=== PATIENT | male | born 2000 | race Caucasian/White ===

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

== ENCOUNTER 2018-10-12 22:10 | Inpatient (IN) | payer OTHER ==
[2018-10-12] MEDS: NS 1,000 ML IV (23:30)
[2018-10-12] MEDS: ONDANSETRON 4MG/2ML VIAL (J2405) IV (23:45)
[2018-10-12] MEDS ORDERED: ISOVUE-370 76% 100ML VIAL (Q9967) As Ordered (23:59)
[2018-10-13] LABS: BASO % 0.1 % (0.0-1.0); EOS # 0.1 10^3/uL (0.0-0.50); EOS % 1.3 % (0.0-3.0); HEMATOCRIT 42.7 % (42.0-52.0); HEMOGLOBIN 14.4 g/dl (13.5-17.5); IMMATURE GRANULOCYTE % 0.5 % (0-3.0); LYMPH # 0.5 10^3/uL (1.5-6.5); MEAN CORPUSCULAR HEMOGLOBIN 29.7 pg (27.0-33.0); MEAN CORPUSCULAR HGB CONC 33.7 g/dl (32.0-36.5); MONO # 0.7 10^3/uL (0.0-0.8); MONO % 6.8 % (0.0-5.0); NEUTROPHILS # 8.6 10^3/uL (1.8-7.7); NEUTROPHILS % 86.3 % (36.0-66.0); PLATELET COUNT, AUTOMATED 248 10^3/uL (150-450); RED BLOOD COUNT 4.85 10^6/uL (4.30-6.10); RED CELL DISTRIBUTION WIDTH 12.1 % (11.5-14.5); WHITE BLOOD COUNT 9.9 10^3/uL (4.0-10.0)
[2018-10-13] MEDS: COLCHICINE 0.6 MG TAB PO ×3 (01:00→20:32)
[2018-10-13] MEDS: NS 1,000 ML IV ×3 (01:06→22:58)
[2018-10-13] MEDS ORDERED: MORPHINE 4 MG/ML 1ML VIAL/SYRINGE (J2270) IV (01:15)
[2018-10-13 01:34] LABS: TROPONIN I < 0.02 NG/ML (< 0.10)
[2018-10-13] MEDS: ACETAMINOPHEN TAB 650MG DOSE (2X325MG) PO ×3 (03:04→23:34)
[2018-10-13] MEDS: PANTOPRAZOLE 40MG INJ (PROTONIX) (C9113) IV (06:29)
[2018-10-13 08:38] LABS: ALBUMIN 3.2 GM/DL (3.2-5.2); ALBUMIN/GLOBULIN RATIO 1.28 (1.00-1.93); ALKALINE PHOSPHATASE 52 U/L (45-117); ALT/SGPT 27 U/L (12-78); ANION GAP 9 MEQ/L (8-16); AST/SGOT 21 U/L (7-37); BILIRUBIN,TOTAL 1.4 MG/DL (0.2-1.0); BLOOD UREA NITROGEN 17 MG/DL (7-18); CALCIUM LEVEL 8.2 MG/DL (8.5-10.1); CARBON DIOXIDE LEVEL 24 MEQ/L (21-32); CHLORIDE LEVEL 107 MEQ/L (98-107); CREATININE FOR GFR 1.03 MG/DL (0.70-1.30); GLUCOSE, FASTING 94 MG/DL (70-100); MAGNESIUM LEVEL 1.7 MG/DL (1.8-2.4); POTASSIUM SERUM 3.6 MEQ/L (3.5-5.1); SODIUM LEVEL 140 MEQ/L (136-145); TOTAL PROTEIN 5.7 GM/DL (6.4-8.2)
[2018-10-13 08:55] LABS: TROPONIN I < 0.02 NG/ML (< 0.10)
[2018-10-13 09:42] LABS: C REACTIVE PROTEIN QUANTITATIV 3.17 MG/DL (0.00-0.30)
[2018-10-13] MEDS: ENOXAPARIN 40 MG/0.4 ML SYRINGE (J1650) SC (09:50)
[2018-10-13] MEDS: MAG SULF 1GM/100ML (MAG RUN) 1 GM in APPROPRIATE DILUENT 1 EA IV (09:51)
[2018-10-13] MEDS: traMADol 50 MG TAB PO ×2 (09:51→17:00)
[2018-10-13 09:52] LABS: ERYTHROCYTE SEDIMENTATION RATE 3 mm/hr (0-15)
[2018-10-13] MEDS: IBUPROFEN 400 MG TAB PO ×2 (10:57→20:31)
[2018-10-13 17:39] LABS: TROPONIN I < 0.02 NG/ML (< 0.10)
[2018-10-13 21:23] LABS: BEDSIDE GLUCOSE 107 MG/DL (70-105)
[2018-10-14] MEDS: PANTOPRAZOLE 40MG INJ (PROTONIX) (C9113) IV (05:28)
[2018-10-14] MEDS: traMADol 50 MG TAB PO (05:32)
[2018-10-14 06:03] LABS: ALBUMIN 2.8 GM/DL (3.2-5.2); ALBUMIN/GLOBULIN RATIO 1.12 (1.00-1.93); ALKALINE PHOSPHATASE 46 U/L (45-117); ALT/SGPT 30 U/L (12-78); ANION GAP 5 MEQ/L (8-16); AST/SGOT 19 U/L (7-37); BILIRUBIN,TOTAL 0.7 MG/DL (0.2-1.0); BLOOD UREA NITROGEN 11 MG/DL (7-18); CALCIUM LEVEL 8.1 MG/DL (8.5-10.1); CARBON DIOXIDE LEVEL 26 MEQ/L (21-32); CHLORIDE LEVEL 110 MEQ/L (98-107); CREATININE FOR GFR 0.93 MG/DL (0.70-1.30); GLUCOSE, FASTING 81 MG/DL (70-100); MAGNESIUM LEVEL 1.8 MG/DL (1.8-2.4); POTASSIUM SERUM 3.9 MEQ/L (3.5-5.1); SODIUM LEVEL 141 MEQ/L (136-145); TOTAL PROTEIN 5.3 GM/DL (6.4-8.2)
[2018-10-14] MEDS: ENOXAPARIN 40 MG/0.4 ML SYRINGE (J1650) SC (08:34)
[2018-10-14] MEDS: IBUPROFEN 400 MG TAB PO ×2 (08:57→17:20)
[2018-10-14] MEDS: NS 1,000 ML IV ×2 (08:57→19:27)
[2018-10-14] MEDS: ACETAMINOPHEN TAB 650MG DOSE (2X325MG) PO ×2 (19:27→20:00)
[2018-10-14] MEDS: levETIRAcetam 250MG TABLET (KEPPRA) PO (20:25)
[2018-10-14 22:21] LABS: KETONE, URINE AUTO RFX NEGATIVE (NEGATIVE); LEUKOCYTE ESTERASE UR AUTO RFX NEGATIVE (NEGATIVE); NITRITE, URINE AUTO RFX NEGATIVE (NEGATIVE); RBC, URINE AUTO RFX 1 /HPF (0-3); SPECIFIC GRAVITY UR AUTO RFX 1.006 (1.002-1.035); SQUAM EPITHELIAL CELL UR AURFX 0 /HPF (0-6); WBC, URINE AUTO RFX 0 /HPF (0-3)
[2018-10-15] MEDS: ONDANSETRON 4MG/2ML VIAL (J2405) IV (04:39)
[2018-10-15] MEDS: PANTOPRAZOLE 40MG INJ (PROTONIX) (C9113) IV (04:39)
[2018-10-15] MEDS: NS 1,000 ML IV ×2 (06:36→14:48)
[2018-10-15 06:58] LABS: ALBUMIN 2.9 GM/DL (3.2-5.2); ALBUMIN/GLOBULIN RATIO 0.97 (1.00-1.93); ALKALINE PHOSPHATASE 49 U/L (45-117); ALT/SGPT 30 U/L (12-78); ANION GAP 4 MEQ/L (8-16); AST/SGOT 18 U/L (7-37); BILIRUBIN,TOTAL 0.4 MG/DL (0.2-1.0); BLOOD UREA NITROGEN 9 MG/DL (7-18); CARBON DIOXIDE LEVEL 30 MEQ/L (21-32); CHLORIDE LEVEL 108 MEQ/L (98-107); CREATININE FOR GFR 0.96 MG/DL (0.70-1.30); GLUCOSE, FASTING 88 MG/DL (70-100); MAGNESIUM LEVEL 1.8 MG/DL (1.8-2.4); POTASSIUM SERUM 3.6 MEQ/L (3.5-5.1); SODIUM LEVEL 142 MEQ/L (136-145); TOTAL PROTEIN 5.9 GM/DL (6.4-8.2)
[2018-10-15] MEDS: IBUPROFEN 400 MG TAB PO ×3 (09:07→21:42)
[2018-10-15] MEDS: levETIRAcetam 250MG TABLET (KEPPRA) PO ×2 (09:08→21:42)
[2018-10-15] MEDS: ENOXAPARIN 40 MG/0.4 ML SYRINGE (J1650) SC (09:08)
[2018-10-15] MEDS ORDERED: SLF 3 ML SYR IV (16:00)
[2018-10-15] MEDS: SLF 3 ML SYR IV (21:42)
[2018-10-16] MEDS: levETIRAcetam 250MG TABLET (KEPPRA) PO (04:32)
[2018-10-16 05:23] LABS: HEMATOCRIT 39.9 % (42.0-52.0); HEMOGLOBIN 13.5 g/dl (13.5-17.5); MEAN CORPUSCULAR HEMOGLOBIN 29.8 pg (27.0-33.0); MEAN CORPUSCULAR HGB CONC 33.8 g/dl (32.0-36.5); MEAN CORPUSCULAR VOLUME 88.1 fl (80.0-96.0); PLATELET COUNT, AUTOMATED 225 10^3/uL (150-450); RED BLOOD COUNT 4.53 10^6/uL (4.30-6.10); WHITE BLOOD COUNT 4.9 10^3/uL (4.0-10.0)
[2018-10-16 05:49] LABS: ALBUMIN/GLOBULIN RATIO 0.94 (1.00-1.93); ALKALINE PHOSPHATASE 50 U/L (45-117); ALT/SGPT 34 U/L (12-78); ANION GAP 5 MEQ/L (8-16); AST/SGOT 25 U/L (7-37); BILIRUBIN,TOTAL 0.3 MG/DL (0.2-1.0); BLOOD UREA NITROGEN 10 MG/DL (7-18); CALCIUM LEVEL 8.2 MG/DL (8.5-10.1); CARBON DIOXIDE LEVEL 30 MEQ/L (21-32); CHLORIDE LEVEL 108 MEQ/L (98-107); CREATININE FOR GFR 1.01 MG/DL (0.70-1.30); GLUCOSE, FASTING 97 MG/DL (70-100); MAGNESIUM LEVEL 1.8 MG/DL (1.8-2.4); POTASSIUM SERUM 3.7 MEQ/L (3.5-5.1); SODIUM LEVEL 143 MEQ/L (136-145); TOTAL PROTEIN 6.2 GM/DL (6.4-8.2)
[2018-10-16] MEDS: PANTOPRAZOLE 40MG INJ (PROTONIX) (C9113) IV (06:23)
[2018-10-16] MEDS: IBUPROFEN 400 MG TAB PO ×3 (06:24→21:16)
[2018-10-16] MEDS: SLF 3 ML SYR IV ×3 (06:24→21:16)
[2018-10-16] MEDS: ENOXAPARIN 40 MG/0.4 ML SYRINGE (J1650) SC (09:01)
[2018-10-17 05:29] LABS: HEMATOCRIT 41.6 % (42.0-52.0); HEMOGLOBIN 14.2 g/dl (13.5-17.5); MEAN CORPUSCULAR HEMOGLOBIN 29.8 pg (27.0-33.0); MEAN CORPUSCULAR HGB CONC 34.1 g/dl (32.0-36.5); MEAN CORPUSCULAR VOLUME 87.4 fl (80.0-96.0); PLATELET COUNT, AUTOMATED 269 10^3/uL (150-450); RED BLOOD COUNT 4.76 10^6/uL (4.30-6.10); RED CELL DISTRIBUTION WIDTH 11.9 % (11.5-14.5); WHITE BLOOD COUNT 6.1 10^3/uL (4.0-10.0)
[2018-10-17 05:42] LABS: ALBUMIN 3.5 GM/DL (3.2-5.2); ALBUMIN/GLOBULIN RATIO 1.13 (1.00-1.93); ALKALINE PHOSPHATASE 51 U/L (45-117); ALT/SGPT 59 U/L (12-78); ANION GAP 7 MEQ/L (8-16); AST/SGOT 41 U/L (7-37); BILIRUBIN,TOTAL 0.4 MG/DL (0.2-1.0); BLOOD UREA NITROGEN 14 MG/DL (7-18); CALCIUM LEVEL 8.9 MG/DL (8.5-10.1); CARBON DIOXIDE LEVEL 31 MEQ/L (21-32); CHLORIDE LEVEL 105 MEQ/L (98-107); CREATININE FOR GFR 1.03 MG/DL (0.70-1.30); GLUCOSE, FASTING 91 MG/DL (70-100); MAGNESIUM LEVEL 1.8 MG/DL (1.8-2.4); POTASSIUM SERUM 3.6 MEQ/L (3.5-5.1); SODIUM LEVEL 143 MEQ/L (136-145); TOTAL PROTEIN 6.6 GM/DL (6.4-8.2)
[2018-10-17] MEDS: PANTOPRAZOLE 40MG INJ (PROTONIX) (C9113) IV (05:44)
[2018-10-17] MEDS: IBUPROFEN 400 MG TAB PO (05:45)
[2018-10-17] MEDS: SLF 3 ML SYR IV (05:45)
== END 2018-10-17 12:09 | disposition home or self-care (01) | DRG 313 ==
LOC: M ED 22:10 → M ED INP 22:11 → M PCU 10-13 06:14
DX: R07.89 Other chest pain (principal); A08.0 Rotaviral enteritis; I31.9 Disease of pericardium, unspecified; R55 Syncope and collapse; G40.909 Epilepsy, unspecified, not intractable, without status epilepticus

== ENCOUNTER 2018-11-09 14:45 | Day surgery (SDC) | payer OTHER ==
[2018-11-09] MEDS ORDERED: PROPOFOL 500 MG/50 ML VIAL As Ordered (15:40)
[2018-11-09] MEDS ORDERED: LIDOCAINE 2% INJ 100 MG/5 ML SDV (FOR ANES.) As Ordered (15:40)
[2018-11-09] MEDS ORDERED: MIDAZOLAM INJ 2 MG/2 ML VIAL (J2250) As Ordered (15:40)
[2018-11-09] MEDS ORDERED: fentaNYL 100 MCG/2 ML INJECTION (J3010) As Ordered (15:40)
[2018-11-09] MEDS: ceFAZolin SOD 1 GM in D5W MINI-BAG PLUS 50 ML IV (17:19)
[2018-11-09] MEDS: LIDOCAINE 1% SDV INJ 30 ML VIAL As Ordered (17:47)
== END 2018-11-09 19:42 | disposition home or self-care (01) ==
LOC: M SDC 19:42
DX: R55 Syncope and collapse (principal); Z91.013 Allergy to seafood; Z88.6 Allergy status to analgesic agent
CPT/HCPCS: 33282

== ENCOUNTER → 2019-02-27 | Outpatient (CLI) | payer OTHER ==
[~2019-02-27] MED LIST: IBUP200C25 PO; TYLE325T5 PO; VENTAER INH
--- NOTE | 2019-02-27 10:01 | REP ---
Chest x-ray: Three views. History: Shortness of breath. Precordial pain. Comparison chest x-ray: December 28, 2017. Findings: A loop recorder is seen in the precordial soft tissues. The lungs are well inflated and clear. Heart is not enlarged. Pulmonary vasculature is not increased. No bony abnormality is seen. Pleural angles are sharp. Impression: Negative chest x-ray. Loop recorder noted in the left precordial soft tissues. Electronically Signed by Vinny Caldwell MD 02/27/2019 09:53 A
== END ==
LOC: M LAB 08:18
PROVIDERS: ATTEND Internal Medicine Cardiovascular Disease
DX: R06.02 Shortness of breath (principal); R07.2 Precordial pain

== ENCOUNTER 2019-05-03 10:53 | Emergency (ER) | payer OTHER ==
[2019-05-03] MEDS ORDERED: EPIP0.3I2 IM (11:03)
--- NOTE | 2019-05-03 11:50 | REP ---
Chest two views HISTORY: Shortness of breath Comparison: 02/27/2019 The lungs are clear. The heart is normal in size. The pulmonary vasculature is normal in appearance. The bony structure is intact. IMPRESSION: No acute disease. Electronically Signed by Timothy Sagastume MD 05/03/2019 11:41 A
[2019-05-03 13:32] VITALS: BP 140/78
--- NOTE | 2019-05-03 20:09 | ECGEPIP ---
[facility] - ED Test Date: 2019-05-03 Pat Name: LIN SOTO Department: Room: - Gender: Male [place]: PMO : 2000 Requested By: Lisha Gonzalez Order Number: [id number] Reading MD: Lisha Gonzalez Measurements Intervals [place] Rate: 76 P: 32 OR: 147 QRS: 3 QRSD: 113 T: 47 QT: 372 QTc: 420 Interpretive Statements SINUS RHYTHM MODERATE INTRAVENTRICULAR CONDUCTION DELAY Electronically Signed on 05-03-2019 20:09:28 EDT by Lisha Gonzalez
== END 2019-05-03 13:33 | disposition home or self-care (01) ==
LOC: M ED 10:53 → EDBD 10:53 → M ED 13:33
DX: R07.9 Chest pain, unspecified (principal); Z88.5 Allergy status to narcotic agent; Z88.8 Allergy status to other drugs, medicaments and biological substances; Z91.018 Allergy to other foods

== ENCOUNTER → 2019-05-09 | Outpatient (CLI) | payer OTHER ==
[~2019-05-09] MED LIST changes: +EPIP0.3I2 IM
--- NOTE | 2019-05-09 14:04 | PFTRPT ---
Height: 75.00 Inches Weight: 215.00 Lbs BSA: 2.26 Diagnosis: R06.02 DATE OF PROCEDURE: 05/09/2019 ORDERED BY: Dr. Santos Spirometry: Pre and post bronchodilator study of excellent technical quality. Forced vital capacity minimally reduced. FEV1 in proportion. Obstructive index is, therefore, normal. Flow Volume Loop: Expiratory limb of the flow volume loop raises a question of nonspecific flow rate limitation versus suboptimal effort with the required maneuver. No significant bronchodilator response is identified. Lung Volumes: Total lung capacity normal. Residual volume borderline for air trapping. Diffusing Capacity: Diffusing capacity is borderline but is completely appropriate for alveolar volume. Hemoglobin: Hemoglobin is acceptable at 14.2. Airway Mechanics: Airway resistance and conductance are normal. IMPRESSION: Only minimally abnormal study most likely on the basis of suboptimal performance of the required maneuvers. Please correlate clinically. MTDD
== END ==
LOC: M CARPUL 13:23
PROVIDERS: ATTEND Internal Medicine Pulmonary Disease
DX: R06.02 Shortness of breath (principal)

== ENCOUNTER → 2019-05-18 | Outpatient (CLI) | payer OTHER ==
[~2019-05-18] MED LIST changes: +METHACHOLINE KIT (J7674) INH ONE
--- NOTE | 2019-05-18 13:46 | PFTRPT ---
Site: [facility], [address] [place], [address] ID: [id number] Name: LIN SOTO Visit Date: 05/18/2019 Second ID: [id number] Referring Doctor: Juanito Santos MD Reviewing Doctor: Juanito Santos MD Rack Washer: Linda MONTERROSO, UDAY Age: 19 : 2000 Sex: Male Race: Height: 75.00 Inches Weight: 216.00 Lbs BSA: 2.27 Order IDs: [id number] Requested Test(s): <RESP-PFT.METH CHAL> Diagnosis: R06.02 puffs of albuterol for post bronchodilator. Review Status: Not Reviewed Pre-Bronch Post-Bronch Pred Actual %Pred Actual %Chng SPIROMETRY FVC (L) 6.46 5.04 78 5.02 FEV1 (L) 5.31 4.42 83 4.33 -1 FEV1/FVC (%) 84 88 104 86 -1 FEF 25% (L/sec) 9.26 9.66 104 10.53 8 FEF 50% (L/sec) 5.95 6.18 103 5.77 -6 FEF 75% (L/sec) 2.49 2.48 99 2.15 -13 FEF 25-75% (L/sec) 5.39 5.22 96 4.93 -5 FEF Max (L/sec) 11.28 9.70 85 10.54 8 FIVC (L) 4.80 4.62 -3 FIF 50% (L/sec) 5.72 7.65 133 5.37 -29 FIF Max (L/sec) 8.57 6.39 -25 Expiratory Time (sec) 6.28 6.26 Back Extrap Vol (L) 0.16 0.25 60 Time To FEFmax (sec) 0.104 0.115 10
== END ==
LOC: M CARPUL 12:32
PROVIDERS: ATTEND Internal Medicine Pulmonary Disease
DX: R06.02 Shortness of breath (principal)
CPT/HCPCS: 94070; J7674

== ENCOUNTER → 2019-05-25 | Outpatient (CLI) | payer OTHER ==
[~2019-05-25] MED LIST changes: -METHACHOLINE KIT (J7674) INH ONE
--- NOTE | 2019-05-26 17:40 | ECHO ---
DATE OF PROCEDURE: 05/25/2019 AGE: 19 GENDER: Male HEIGHT: 76 inches WEIGHT: 225 pounds BODY SURFACE AREA: 2.33 sq m. OUTPATIENT: REFERRING PHYSICIAN: TEETEE Mistry INDICATION: Chest pain. MEASUREMENTS: 2-D measurements: RV: 4.1 LV: 5.3 cm Septum: 1.0 cm Posterior wall: 1.0 cm Aortic root: 3.9 cm Proximal ascending aorta: 3.6 cm Aortic arch: 2.8 cm LA: 3.3 cm LVEF: 65%. Doppler measurements: AV: 1.29 m/sec LVOT: 0.95 m/sec LVOT Diameter: 2.2 cm MV-E: 75 A: 48 E:A ratio: 1.6 Early mitral deceleration time: 298 milliseconds E-Prime: 10.3 A-Prime: 7 E/E prime ratio: 7.4 PV: 0.95 m/sec Pulmonary artery acceleration time: 150 ms RVSP: 23 mHg IVC 1.6 cm COMMENTS: Normal sinus rhythm with subtle interventricular conduction disturbance. M-mode and two-dimensional echo cardiovert echocardiography was performed with pulsed, continuous wave, color flow and tissue Doppler studies. Normal left ventricular size, wall thickness and wall motion. Normal left atrial size and Doppler assessment of LV diastolic function and estimated mean left atrial pressure. Normal right heart chamber sizes and motion with normal pulmonary arterial pressure. Normal IVC size and collapse against an elevated central venous pressure. Normal appearing and functioning valvular structures. Slightly dilated aortic sinuses of Valsalva but normal proximal ascending aorta and aortic arch diameters. No apparent intracardiac mass or pericardial effusion. MTDD
== END ==
LOC: M CARPUL 08:45
PROVIDERS: ATTEND Physician Assistant
DX: R07.9 Chest pain, unspecified (principal)